=== PATIENT | male | born 1980 | race Caucasian/White ===

== ENCOUNTER 2016-12-19 11:43 | Emergency (ER) | payer SELFPAY ==
--- NOTE | 2017-01-08 15:42 | ER ---
ADMIT: 12/19/2016 RM/LOC: ER [facility] MR#: [id number] [facility] [id number] [place], [place] [address] [address] [place] [address] Emergency Room Report SEX: M AGE: 36 : 1980 DATE: 12/19/2016 This is a 36-year-old who comes in with a rash. He says it is intermittent in nature, comes and goes. It is currently improved, but it is exceedingly itchy when it does occur. See T-sheet for history and physical. The patient does have what appeared to be bug bites but also some urticaria. He is given Benadryl in the emergency department. Resolution of the itching and improvement of the urticarial rash. He was discharged with diagnosis of hives. He is given a Medrol Dosepak and instructed to use Benadryl and to follow up this week and also try and identify any new factors in his living situation that he may be allergic to. Layton Treadwell MD/ heri JOB #: [id number] CC: Layton Treadwell MD, Attending Physician NO FAMILY PHYSICIAN, Family Physician
== END 2016-12-19 12:20 | disposition home or self-care (01) ==
LOC: ER 11:43
DX: L50.9 Urticaria, unspecified (principal); F17.210 Nicotine dependence, cigarettes, uncomplicated